=== PATIENT | male | born 1960 | race Caucasian/White ===

== ENCOUNTER 2021-12-21 14:18 | Emergency (ER) | payer MEDICAID, SELFPAY ==
[2021-12-21 14:19] VITALS: BP 102/59; PULSE 65; RESP 18; TEMP 35.8; O2SAT 96; BMI 29.5
--- NOTE | 2021-12-21 15:33 | EDS_ITS ---
HPI History of Present Illness Chief Complaint: Upper Extremity Injury Informant: patient Occured/Mechanism Mechanism/Context: Yes work related and Yes other see comment below Comment: Accidentally incised while using a hardboard grinder Onset/Context/Timing Onset: Today (JPTA) Context: Sudden Onset Timing: Continuous Quality of Pain: Aching Location: R hand Current Severity: Moderate Maximum Severity: Severe Worsened by: moving Relieved by: remaining still Associated Symptoms Associated Symptoms: Negative for Parasthesia, Weakness and Loss of Funtion Narrative Narrative: Patient was at work grinding metal, he states that the hardboard grinder slipped and got away from him, injuring him in the right upper extremity, namely the hand and the mid-forearm. [id number]. No loss of function. Tetanus Immunization: >10 years PFSH PFS Medical History no medical history no medical history Home Medications naproxen 500 mg PO BID PRN #20 tab 06/06/17 [Rx Last Taken Unknown] cefadroxil 500 mg PO BID #10 cap 12/21/21 [Rx Last Taken Unknown] Allergy/AdvReac Type Severity Reaction Status Date / Time No Known Allergies Allergy Verified 12/21/21 14:20 Family History no significant family his Surgical History no surgical history Social History Smoking Status: Current every day smoker tobacco type: cigarettes ROS ROS ED Constitutional Constitutional ED: Denies chills or fever(s) Musculoskeletal Musculoskeletal: Reports extremity pain; Denies neck pain Integumentary Reports laceration and wounds; Denies Abrasions or rash Neurologic Neurologic: Denies paresthesias or weakness EXAM Physical Exam Const Vital Signs: 12/21/21 14:19 Temperature 96.5 F L Temperature Source Temporal Pulse Rate 65 Respiratory Rate 18 Blood Pressure 102/59 L Blood Pressure Mean 73 Pulse Ox 96 Oxygen Delivery Method Room Air Positive well nourished and well developed General Appearance ED: well developed and NAD Neck full ROM and supple Back/Spine normal ROM and normal to inspection Extremity Extremity Narrative: Limited range of motion of the right index finger due to pain and laceration near the DIPJ, but otherwise full range of motion throughout the fingers, hand, wrist, elbow. Only bony tenderness is at the right index finger and the right fifth MCPJ. All tendon function intact. Neuro oriented x3, no focal motor deficits and no sensory deficits noted Sensorium / Orientation: alert Psych mental status grossly normal and thought process normal Skin Skin Narrative: 3 cm laceration right index finger, radial aspect near the DIPJ. 2.5 cm laceration right fifth finger just distal to the MCP J. 3 separate lacerations all together and one wound at the ulnar aspect of the mid right fore arm, 3 cm, 5 cm, and 1 cm. Rashes: no rashes MDM MDM MDM Narrative Medical decision making narrative: X-rays of the right hand 3 views of my interpretation show no acute bony involvement or foreign material, radiology interpretation is in agreement with this. All of the lacerations were repaired, there were 5 of them for a total of 23 simple interrupted Ethilon sutures, see the procedure note for details. Given the level of possible contamination, the patient's hand was covered in grease from working on a truck, we will place him on Duricef prophylactically. His tetanus was updated. All questions answered at bedside, given referral for PCP which he does not have, also advised he can come to the ER. Procedures Lacerations R forearm #1: Length: 1 cm Depth: Sub Q Shape: Linear Prep: Sterile Conditions and Chlorhexadine Laceration repair: Irrigated, Lidocaine with epi (2cc, 1%) and Skin sutures Irrigated (ml): 60 Number of Sutures/[place]: 4 Suture Information: Ethilon, Simple and 4-0 R forearm #2: Length: 5 cm Depth: Sub Q Shape: Linear Prep: Sterile Conditions and Chlorhexadine Laceration repair: Irrigated, Lidocaine with epi (5cc, 1%), Local and Skin sutures Irrigated (ml): 60 Number of Sutures/[place]: 6 Suture Information: Ethilon, Simple and 4-0 R forearm #3: Length: 3 cm Depth: Sub Q Shape: Linear Prep: Sterile Conditions and Chlorhexadine Laceration repair: Irrigated, Lidocaine with epi (2cc, 1%), Local and Skin sutures Irrigated (ml): 60 Number of Sutures/Ryan: 3 Suture Information: Ethilon, Simple and 4-0 R index finger: Length: 3 cm Depth: Sub Q Shape: Linear Prep: Sterile Conditions and Chlorhexadine Laceration repair: Irrigated, Lidocaine with epi (3cc, 1%), Local and Skin sutures Irrigated (ml): 30 Number of Sutures/[place]: 5 Suture Information: Ethilon, Simple and 5-0 R 5th finger: Length: 2.5 cm Depth: Sub Q Shape: Linear Prep: Sterile Conditions and Chlorhexadine Laceration repair: Irrigated, Lidocaine with epi (2cc, 1%), Local and Skin sutures Irrigated (ml): 30 Number of Sutures/[place]: 5 Suture Information: Ethilon, Simple and 5-0 Discharge Plan Triage Chief Complaint: Upper Extremity Injury ED Provider: Gal Yu Dx/Rx/DC Orders Clinical Impression: Laceration of arm, right, multiple sites, Immunization, tetanus-diphtheria Instructions: ED Laceration: All Closures Prescriptions: New cefadroxil 500 mg capsule 500 mg PO BID Qty: 10 RF: 0 No Action naproxen 500 MG tablet 500 mg PO BID PRN Qty: 20 RF: 0 Primary Care Provider: Care Physician,No Primary Referrals: Yung Eller DO [STAFF PHYSICIAN] - 10-14 Days suture removal (Or may go to urgent care or ER) Care Physician,No Primary [Primary Care Provider] - Disposition Disposition: Home, Self Care
[2021-12-21] MEDS: Diphth,Pertuss(Acell),Tet Vac 0.5 ML Vial IM (15:45)
[2021-12-21] MEDS: Lidocaine/Epi/Tetracaine 50 ML 1 APPLIC TOPICAL (15:46)
[2021-12-21] MEDS: Lidocaine 1% /Epi 1:100 (20ml) 20 ML Vial INFILT (15:46)
[2021-12-21] MEDS: HYDROcodone Bitartrate/Apap 5/325 Tablet PO (15:46)
--- NOTE | 2021-12-21 15:50 | RAD_ITS ---
EXAM: XR RIGHT HAND COMPLETE, 3 OR MORE VIEWS CLINICAL INDICATION: injury TECHNIQUE: Frontal, lateral and oblique views of the right hand. This report was created using [employer] report generation technology. COMPARISON: None. FINDINGS: BONES/JOINTS: There are soft tissue calcifications adjacent to the middle second phalanx. There are degenerative changes at the first carpometacarpal joint. No acute fracture. No subluxation. Normal alignment. No sclerotic or destructive changes observed. SOFT TISSUES: Unremarkable. No soft tissue swelling or gas. No radiopaque foreign body. RAD/Hand Min 3 Views IMPRESSION: No acute osseous abnormalities. There are degenerative changes with narrowing at the first carpometacarpal joint. There are soft tissue calcifications along the second phalanx which may be due to old trauma. Electronically Signed: Teja Torres MD at 16:15 EDT ,
--- NOTE | 2021-12-21 17:35 | CM.ED ---
Social Work Note SW noted pt has no PCP. SW in to speak with pt. SW introduced self and [facility]. Pt confirms he has no PCP. SW provided pt with PCP list and Where To Go and When to Go Pamphlet. Cheryl Coelho TROUBLE SHOOTING MECHANIC, AUTOMATIC PAD MAKING MACHINE OPERATOR
[2021-12-21 20:49] VITALS: RESP 17; O2SAT 98
[2021-12-21] MEDS: Cephalexin 250 MG Capsule 500 MG PO (20:52)
== END 2021-12-21 20:53 | disposition home or self-care (01) ==
PROVIDERS: Emergency Provider Emergency Medicine; Visit Provider Emergency Medicine
DX: S51.811A Laceration without foreign body of right forearm, initial encounter (principal); S61.210A Laceration without foreign body of right index finger without damage to nail, initial encounter; S61.216A Laceration without foreign body of right little finger without damage to nail, initial encounter; W31.89XA Contact with other specified machinery, initial encounter; F17.210 Nicotine dependence, cigarettes, uncomplicated; Z23 Encounter for immunization
CPT/HCPCS: 12005; 73130; 90715; 99283

== ENCOUNTER 2021-12-30 13:44 | Emergency (ER) | payer MEDICAID, SELFPAY ==
[2021-12-30 13:46] VITALS: BP 157/85; PULSE 66; RESP 15; TEMP 36.4; O2SAT 99; BMI 29.5
--- NOTE | 2021-12-30 14:25 | CM.ED ---
Social Work Note Reason for Referral: No PCP SW reviewed chart. Pt was recently at [facility] ED 12/21/2021 and was provided list of PCP at that time. Cheryl Coelho MSW, PLATE PRINTER
--- NOTE | 2021-12-30 15:16 | EX.ED.DYSGE1 ---
HPI History of Present Illness Chief Complaint: Suture Remv Narrative Narrative: Presents for suture removal from lacerations in the right forearm, and hand. This was sustained about 10 days ago. Patient has not had any issues. He states he is here for suture removal. [facility] Medical History no medical history Home Medications naproxen 500 mg PO BID PRN #20 tab 06/06/17 [Rx Last Taken Unknown] cefadroxil 500 mg PO BID #10 cap 12/21/21 [Rx Last Taken Unknown] Allergy/AdvReac Type Severity Reaction Status Date / Time No Known Allergies Allergy Verified 12/21/21 14:20 Social History Smoking Status: Current every day smoker tobacco type: cigarettes ROS ROS ED Constitutional Constitutional ED: Denies chills, fever(s) or sweats Eyes Eyes: Denies blurry vision or change in vision ENT ENT ED: Denies ear pain or sore throat Cardiovascular Cardiovascular: Denies chest pain, palpitations or racing heartbeat Respiratory/Chest Respiratory/Chest: Denies cough, dyspnea or sputum Gastrointestinal Gastrointestinal: Denies abdominal pain, constipation, diarrhea, nausea or vomiting Genitourinary Genitourinary ED: Denies dysuria, hematuria or urinary frequency Musculoskeletal Musculoskeletal: Denies arthralgias, myalgias or neck pain Integumentary Denies abscess, Abrasions or rash Neurologic Neurologic: Denies headache(s), paresthesias or weakness Psychiatric Psychiatric: Denies anxiety, depression, suicidal ideation or suicidal thoughts Endocrine Endocrinology: Denies polydipsia or polyuria EXAM Physical Exam Const Vital Signs: 12/30/21 13:46 Temperature 97.5 F L Temperature Source Temporal Pulse Rate 66 Respiratory Rate 15 Blood Pressure 157/85 H Blood Pressure Mean 109 Pulse Ox 99 Oxygen Delivery Method Room Air Positive well nourished General Appearance ED: NAD Eyes PERRL and EOMs intact bilaterally Neck no lymphadenopathy and supple Resp normal respiratory effort and clear to auscultation bilaterally Cardio regular rate and regular rhythm Extremity Extremity Narrative: Well-healing lacerations to the right forearm and right hand Neuro oriented x3 Sensorium / Orientation: alert Psych mental status grossly normal MDM MDM MDM Narrative Medical decision making narrative: Patient presents for suture removal. I did review Dr. Yu's note and saw that he placed 23. Patient's wounds were cleaned. Sutures were removed without sequela. Patient tolerated this well.. Patient given wound care instructions and return precautions. Impression: 1 suture removal Discharge Plan Triage Chief Complaint: Suture Remv ED Provider: Juni Carvalho Dx/Rx/DC Orders Instructions: ED Stitches/Staple Removal No ... Prescriptions: No Action naproxen 500 MG tablet 500 mg PO BID PRN Qty: 20 RF: 0 cefadroxil 500 mg capsule 500 mg PO BID Qty: 10 RF: 0 Primary Care Provider: Care Physician,No Primary Referrals: Care Physician,No Primary [Primary Care Provider] - Disposition Disposition: Home, Self Care Discharge Date/Time: 12/30/21 15:23
== END 2021-12-30 15:23 | disposition home or self-care (01) ==
PROVIDERS: Emergency Provider Student in an Organized Health Care Education/Training Program; Visit Provider Student in an Organized Health Care Education/Training Program
DX: Z48.02 Encounter for removal of sutures (principal); F17.210 Nicotine dependence, cigarettes, uncomplicated
CPT/HCPCS: 99281; 99282